=== PATIENT | female | born 1980 | race Hispanic/Latino ===

== ENCOUNTER 2017-04-11 09:30 | Inpatient (IN) | payer BC ==
[~2017-04-11] VITALS: Ht 166.4 cm; Wt 82.6 kg
[2017-04-11 10:23] LABS: HEMATOCRIT 35.7 % (36-48); MEAN CORPUSCULAR HEMOGLOBIN 30.3 pg (27.0-33.0); MEAN CORPUSCULAR HGB CONC 36.1 g/dL (32.0-36.0); MEAN CORPUSCULAR VOLUME 83.8 fL (79-99); PLATELET COUNT (AUTO) 205 K/uL (130-400); RED BLOOD CELL COUNT(AUTO) 4.27 MIL/uL (4.00-5.50); RED CELL DISTRIBUTION WIDTH 13.6 % (11.0-15.5)
[2017-04-12] MEDS ORDERED: LACTATED RINGERS 1000ML 1,000 ML IV SCH (06:00)
[2017-04-12] MEDS ORDERED: CEFAZOLIN SODIUM 1 GM VIAL IVP PRN (06:00)
[2017-04-12] MEDS ORDERED: CALDOLOR 800MG+NS 250ML 250 ML IV ONE (10:12)
[2017-04-12] MEDS ORDERED: DURAMORPH PF1 MG/ML 10ML AMP IV ONE (10:17)
[2017-04-12 10:22] LABS: HEPATITIS Bs ANTIGEN SCREEN P Negative (Negative)
[2017-04-12] MEDS ORDERED: CEFAZOLIN SODIUM 1 GM VIAL IVP ONE (10:35)
[2017-04-12] MEDS ORDERED: DEXAMETHASONE SOD PHOSPHATE 10MG/ML 1ML VIAL ONE (11:00)
[2017-04-12] MEDS ORDERED: ONDANSETRON HCL 4 MG/2 ML VIAL ONE ×2 (11:00→15:04)
[2017-04-12] MEDS ORDERED: OXYTOCIN 10 USP UNITS/ML ONE ×2 (11:10→11:49)
[2017-04-12] MEDS ORDERED: DEXTROSE 5%-LACTATED RINGERS 1,000 ML IV PRN (11:41)
[2017-04-12] MEDS ORDERED: PROMETHAZINE HCL 25 MG/ML 1ML AMPULE IM PRN ×2 (11:45→18:00)
[2017-04-12] MEDS ORDERED: DEXTROSE 5 %-0.45 % NACL 1,000 ML IV PRN (11:45)
[2017-04-12] MEDS ORDERED: MEPERIDINE-PF 75 MG/ML SYG IM PRN (11:45)
[2017-04-12] MEDS ORDERED: SODIUM CHLORIDE 0.9% 10 ML VIAL IVP PRN (11:45)
[2017-04-12] MEDS ORDERED: LACTATED RINGERS 1000ML 1,000 ML IV ONE (11:48)
[2017-04-12] MEDS ORDERED: METHYLERGONOVINE MALEATE 0.2 MG/1 ML ML ONE (11:48)
[2017-04-12] MEDS ORDERED: METHYLERGONOVINE MALEATE 0.2 MG/1 ML ML IM SCH (11:55)
[2017-04-12] MEDS ORDERED: DiphenhydrAMINE HCL 50 MG/ML VIAL ONE ×2 (13:46→17:27)
[2017-04-12 16:40] VITALS: BP 122/79
[2017-04-12] MEDS ORDERED: EPHEDRINE SULFATE 50 MG/ML AMPULE IVP PRN (18:00)
[2017-04-12] MEDS ORDERED: HYDROCODONE/ACETAMINOPHEN 5/325 MG TAB PO PRN ×2 (18:00)
[2017-04-12] MEDS ORDERED: METOCLOPRAMIDE 10 MG/2 ML VIAL IVP PRN (18:00)
[2017-04-12] MEDS ORDERED: MORPHINE SULFATE 2 MG/ML 1ML SYG IVP PRN (18:00)
[2017-04-12] MEDS ORDERED: ONDANSETRON HCL 4 MG/2 ML VIAL IVP PRN ×2 (18:00)
[2017-04-12] MEDS ORDERED: ONDANSETRON HCL 4 MG/2 ML 8 MG in SODIUM CHLORIDE 0.9% 50 ML IVP NR (18:00)
[2017-04-12] MEDS ORDERED: NALOXONE HCL 0.4 MG/1 ML ML IVP PRN (18:00)
[2017-04-12] MEDS ORDERED: DiphenhydrAMINE HCL 50 MG/ML VIAL IVP PRN (18:00)
[2017-04-12] MEDS: CALDOLOR 800MG+NS 250ML 250 ML IV SCH (19:32)
[2017-04-12 19:33] VITALS: BP 124/78
[2017-04-12 23:14] VITALS: BP 122/73
[2017-04-13 03:19] VITALS: BP 107/57
[2017-04-13] MEDS: CALDOLOR 800MG+NS 250ML 250 ML IV SCH (03:56)
[2017-04-13 06:37] LABS: HEMATOCRIT 29.1 % (36-48); MEAN CORPUSCULAR HEMOGLOBIN 29.4 pg (27.0-33.0); MEAN CORPUSCULAR HGB CONC 34.6 g/dL (32.0-36.0); MEAN CORPUSCULAR VOLUME 84.9 fL (79-99); PLATELET COUNT (AUTO) 162 K/uL (130-400); RED BLOOD CELL COUNT(AUTO) 3.42 MIL/uL (4.00-5.50); RED CELL DISTRIBUTION WIDTH 13.5 % (11.0-15.5); WHITE BLOOD COUNT (AUTO) 10.4 K/uL (4.8-10.8)
[2017-04-13] MEDS ORDERED: ACETAMINOPHEN EXTRA STRENGTH 500 MG TABLET PO PRN ×2 (08:00→10:30)
[2017-04-13] MEDS ORDERED: BISACODYL 10 MG SUPP.RECT RC PRN ×2 (08:00→10:30)
[2017-04-13] MEDS ORDERED: LANOLIN 30GM OINTMENT TP PRN ×2 (08:00→10:30)
[2017-04-13 08:07] VITALS: BP 109/60
[2017-04-13] MEDS: ACETAMINOPHEN-CODEINE 300/30MG TAB PO PRN ×2 (08:48→13:59)
[2017-04-13] MEDS: DIPH,PERTUSS(ACELL),TET VAC/PF 0.5 ML VIAL IM SCH ×2 (08:49→10:30)
[2017-04-13] MEDS: DOCUSATE SODIUM 100 MG CAP PO SCH ×3 (08:49→21:00)
[2017-04-13] MEDS: SIMETHICONE 80 MG TAB.CHEW PO PRN ×3 (08:49→20:39)
[2017-04-13] MEDS ORDERED: SODIUM CHLORIDE 0.9% 10 ML VIAL IVP PRN (10:30)
[2017-04-13] MEDS ORDERED: IBUPROFEN 800 MG TAB PO SCH (10:30)
[2017-04-13] MEDS ORDERED: ACETAMINOPHEN-CODEINE 300/30MG TAB PO PRN (10:30)
[2017-04-13] MEDS ORDERED: DIPHENHYDRAMINE HCL 25 MG CAPSULE PO PRN (10:30)
[2017-04-13] MEDS ORDERED: SIMETHICONE 80 MG TAB.CHEW PO PRN (10:30)
[2017-04-13] MEDS: MEASLES/MUMPS/RUBELLA VACCINE, LIVE 0.5 ML/VIAL SQ SCH (10:30)
[2017-04-13] MEDS: IBUPROFEN 800 MG TAB PO SCH ×2 (11:47→20:39)
[2017-04-13 11:49] VITALS: BP 96/58
[2017-04-13 15:50] VITALS: BP 107/60
[2017-04-13 20:19] VITALS: BP 108/56
[2017-04-13 23:15] VITALS: BP 133/63
[2017-04-14] MEDS: DIPH,PERTUSS(ACELL),TET VAC/PF 0.5 ML VIAL IM SCH ×2 (01:33→01:35)
[2017-04-14] MEDS: MEASLES/MUMPS/RUBELLA VACCINE, LIVE 0.5 ML/VIAL SQ SCH (01:34)
[2017-04-14 03:24] VITALS: BP 114/70
[2017-04-14] MEDS: IBUPROFEN 800 MG TAB PO SCH ×2 (04:01→11:25)
[2017-04-14 08:00] VITALS: BP 112/67
[2017-04-14] MEDS: SIMETHICONE 80 MG TAB.CHEW PO PRN (08:25)
[2017-04-14] MEDS: ACETAMINOPHEN-CODEINE 300/30MG TAB PO PRN (08:25)
[2017-04-14] MEDS: DOCUSATE SODIUM 100 MG CAP PO SCH ×2 (08:25→09:00)
[2017-04-14] MEDS ORDERED: LIDOCAINE 5% TOPICAL PATCH TP SCH (09:00)
[2017-04-14 11:57] VITALS: BP 114/70
== END 2017-04-14 13:40 | disposition home or self-care (01) | DRG 765 ==
LOC: EDSTATUS 09:30 → LDH 04-12 05:41 → WSH 04-12 16:39
PROVIDERS: ADMIT Obstetrics & Gynecology; ATTEND Obstetrics & Gynecology
PROC: 0UN90ZZ Release Uterus, Open Approach (ICD-10-PCS; 2017-04-12)
PROC: 8E0 Other Procedures, Physiological Systems and Anatomical Regions, Other Procedures (ICD-10-PCS; 2017-04-12)
PROC: 3E0234Z Introduction of Serum, Toxoid and Vaccine into Muscle, Percutaneous Approach (ICD-10-PCS; 2017-04-12)
PROC: 3E0134Z Introduction of Serum, Toxoid and Vaccine into Subcutaneous Tissue, Percutaneous Approach (ICD-10-PCS; 2017-04-12)
PROC: 10D00Z1 Extraction of Products of Conception, Low, Open Approach (ICD-10-PCS; principal; 2017-04-12 09:05)
DX: O34.211 Maternal care for low transverse scar from previous cesarean delivery (principal); D62 Acute posthemorrhagic anemia; K66.0 Peritoneal adhesions (postprocedural) (postinfection); N85.6 Intrauterine synechiae; O09.523 Supervision of elderly multigravida, third trimester; Z37.0 Single live birth; Z3A.39 39 weeks gestation of pregnancy; Z23 Encounter for immunization
CPT/HCPCS: 36415; 59510; 85027; 86592; 86850; 86900; 86901; 87340; 90715; A4344; A4606; J0690; J1100; J1200; J1741; J2210; J2274; J2405; J2590; J7120

== ENCOUNTER 2022-02-02 09:02 | Emergency (ER) | payer BC ==
[~2022-02-02] VITALS: Ht 167.6 cm; Wt 74.8 kg
[2022-02-02] MEDS ORDERED: LIDOCAINE 1% IV STA (09:23)
[2022-02-02] MEDS ORDERED: KETOROLAC 30MG VIAL (30MG/ML) IVP ONE (09:30)
[2022-02-02] MEDS ORDERED: 0.9%NACL 1000ML 1,000 ML IV ONE (09:30)
[2022-02-02 09:47] LABS: APPEARANCE,URINE CLOUDY (CLEAR); BILIRUBIN,URINE NEGATIVE (NEGATIVE); COLOR,URINE YELLOW (YELLOW); GLUCOSE, URINE (UA) NEGATIVE (NEGATIVE); KETONES,URINE 5 mg/dL (NEGATIVE); LEUKOCYTE ESTERASE ,URINE 75 Leu/uL (NEGATIVE); NITRATE,URINE NEGATIVE (NEGATIVE); OCCULT BLOOD,URINE LARGE (NEGATIVE); PROTEIN,URINE 50 mg/dL (NEGATIVE)
[2022-02-02 09:58] LABS: BACTERIA,URINE FEW /HPF (None Seen); MUCUS,URINE MANY LPF (None Seen); RBC,URINE 51-100 /HPF (0-1); SQUAMOUS EPITHELIAL CELL,UR MOD /HPF (0-2); WBC,URINE 26-50 /HPF (0-1)
[2022-02-02] MEDS ORDERED: LIDOCAINE HCL 1% IV SCH (10:00)
[2022-02-02] MEDS ORDERED: SODIUM CHLORIDE 0.9% IV SCH (10:00)
[2022-02-02] MEDS ORDERED: MORPHINE 4 MG SYG IM ONE (11:00)
[2022-02-02] MEDS ORDERED: ONDANSETRON 4MG INJ IVP ONE (11:00)
[2022-02-02] MEDS ORDERED: IBUP-1493 PO (12:18)
[2022-02-02 12:25] VITALS: BP 133/78
== END 2022-02-02 12:29 | disposition home or self-care (01) ==
LOC: EDH 09:02
DX: N23 Unspecified renal colic (principal); G43.909 Migraine, unspecified, not intractable, without status migrainosus; Z79.1 Long term (current) use of non-steroidal anti-inflammatories (NSAID)
CPT/HCPCS: 99284; 96365; 96361; 96375; 87088; 81001; J7030; J1885; J3490; J2001

== ENCOUNTER → 2022-07-14 | Outpatient (CLI) | payer BC ==
[~2022-07-14] MED LIST: IBUP-1493 PO
[2022-07-14 12:13] LABS: BASOPHILS % (AUTO) 0.4 % (0.0-5.0); EOSINOPHILS % (AUTO) 2.1 % (0.0-8.0); LYMPHOCYTES % (AUTO) 17.7 % (21.0-51.0); MEAN CORPUSCULAR HEMOGLOBIN 29.6 pg (27.0-33.0); MEAN CORPUSCULAR HGB CONC 34.7 g/dL (32.0-36.0); MEAN CORPUSCULAR VOLUME 85.3 fL (79-99); NEUTROPHILS % (AUTO) 73.7 % (40.0-77.0); PLATELET COUNT (AUTO) 247 K/uL (130-400); RED BLOOD CELL COUNT(AUTO) 4.22 MIL/uL (4.00-5.50); RED CELL DISTRIBUTION WIDTH 13.8 % (11.0-15.5); WHITE BLOOD COUNT (AUTO) 6.7 K/uL (4.8-10.8)
[2022-07-14 12:38] LABS: ALBUMIN 3.9 g/dL (3.5-5.0); CREATININE 0.9 mg/dL (0.5-1.5); T4 (THYROXINE) 7.1 ug/dL (4.7-13.3); THYROID STIMULATING HORMONE 0.72 uIU/mL (0.36-3.74); TOTAL PROTEIN, SERUM 7.2 g/dL (6.0-8.3)
== END | disposition home or self-care (01) ==
LOC: LAB 08:57
PROVIDERS: ATTEND Internal Medicine Cardiovascular Disease
DX: R00.2 Palpitations (principal); R06.00 Dyspnea, unspecified
CPT/HCPCS: 36415; 80053; 80061; 84436; 84443; 84479; 85025

== ENCOUNTER → 2022-07-27 | Outpatient (CLI) | payer OTHER | END | disposition home or self-care (01) | LOC: OIH 08:57 | PROVIDERS: ATTEND Internal Medicine Cardiovascular Disease | DX: Z13.6 Encounter for screening for cardiovascular disorders (principal) | CPT/HCPCS: 75571 ==

== ENCOUNTER 2022-08-06 06:07 | Day surgery (SDC) | payer BC ==
[2022-08-05 15:08] LABS: BASOPHILS % (AUTO) 0.5 % (0.0-5.0); EOSINOPHILS % (AUTO) 3.1 % (0.0-8.0); LYMPHOCYTES % (AUTO) 21.5 % (21.0-51.0); MEAN CORPUSCULAR HGB CONC 34.7 g/dL (32.0-36.0); MEAN CORPUSCULAR VOLUME 86.5 fL (79-99); MONOCYTES % (AUTO) 5.1 % (3.0-13.0); NEUTROPHILS % (AUTO) 69.4 % (40.0-77.0); PLATELET COUNT (AUTO) 233 K/uL (130-400); RED BLOOD CELL COUNT(AUTO) 4.16 MIL/uL (4.00-5.50); RED CELL DISTRIBUTION WIDTH 14.1 % (11.0-15.5); WHITE BLOOD COUNT (AUTO) 7.4 K/uL (4.8-10.8)
[2022-08-05 15:27] VITALS: BP 110/65
[2022-08-06] VITALS (18 sets, daily range): BP systolic 103–138; BP diastolic 52–85
[~2022-08-06] VITALS: Ht 165.1 cm; Wt 71.6 kg
[~2022-08-06 06:07] MED LIST changes: +BUTA1CAP53 PO; +FOLI1 PO; -IBUP-1493 PO; +METO-391 PO; +TOPI100T37 PO
[2022-08-06] MEDS ORDERED: LACTATED RINGERS 1000ML 1,000 ML IV ONE (06:16)
[2022-08-06] MEDS: CEFAZOLIN SODIUM 2 GM VIAL ONE ×2 (06:28→07:15)
[2022-08-06] MEDS ORDERED: MIDAZOLAM HCL 1 MG/ML 2ML VIAL ONE (06:58)
[2022-08-06] MEDS ORDERED: DEXAMETHASONE SOD PHOSPHATE 10MG/ML 1ML VIAL ONE (06:58)
[2022-08-06] MEDS ORDERED: LIDOCAINE PF 100MG/5ML (2%) SYRINGE 5ML ONE (06:58)
[2022-08-06] MEDS ORDERED: PROPOFOL 10 MG/ML 20ML VIAL IV ONE (06:59)
[2022-08-06] MEDS ORDERED: FENTANYL CITRATE PF 50 MCG/1 ML 2ML VIAL ONE (06:59)
[2022-08-06] MEDS ORDERED: ONDANSETRON 4MG INJ ONE (06:59)
== END 2022-08-06 09:55 | disposition home or self-care (01) ==
LOC: DAH 06:07
PROVIDERS: ATTEND Obstetrics & Gynecology
DX: N92.0 Excessive and frequent menstruation with regular cycle (principal); Z20.822 Contact with and (suspected) exposure to COVID-19; R93.89 Abnormal findings on diagnostic imaging of other specified body structures; N81.2 Incomplete uterovaginal prolapse; N88.2 Stricture and stenosis of cervix uteri; G43.909 Migraine, unspecified, not intractable, without status migrainosus; Z98.890 Other specified postprocedural states; Z90.49 Acquired absence of other specified parts of digestive tract; Z79.899 Other long term (current) drug therapy
CPT/HCPCS: 84703; 85025; 86850; 86900; 86901; 87426; 36415; 58558; A6260; A4351; A4606; A4355; J7120; J3010; J1100; J2001; J2250; J2704; J2405; J0690; A4215; A4223; A4222; A4221; A4663; J7030; A4600; A4510